=== PATIENT | female | born 1935 | race African-American/Black ===

== ENCOUNTER 2017-05-19 06:42 | Emergency (ER) | payer MEDICARE ==
[~2017-05-19] VITALS: Ht 172.7 cm; Wt 104.3 kg
[2017-05-19 06:52] VITALS: BP 141/77
--- NOTE | 2017-05-19 06:58 | Emergency Room Report ---
History of Present Illness General Chief Complaint: Gastrointestinal Bleed Source: Medical Record Present Illness HPI Patient is a 82-year-old female sent in by skilled nursing after increased rectal bleeding. Patient was noted to have approximately 250ml of a red blood per rectum. The patient is noted a prior history of CVA and was taking aspirin daily. The patient was noted to be initially normotensive. She's noted be hypotensive at the facility. The patient history of diabetes. History is limited by patient's mental status. Allergies: Coded Allergies: No Known Allergies (Unverified , 05/19/17) Patient History Past Medical History: see triage record Reviewed Nursing Documentation: PMH: Agreed, PSxH: Agreed Nursing Documentation-PMH Past Medical History: No History, Except For Hx Cardiac Problems: Yes - arrhythmia Hx Hypertension: Yes Hx Diabetes: Yes Hx Neurological Problems: Yes - hemiplegia and hemiparesis, muscle weakness Review of Systems All Other Systems: limited - by mental status Physical Exam Vital Signs Date Time Temp Pulse Resp B/P (MAP) Pulse Ox O2 Delivery O2 Flow Rate FiO2 05/19/17 06:43 95 26 141/77 Room Air 05/19/17 06:52 99 Sp02 EP Interpretation: reviewed, normal General Appearance: normal inspection, obese, Chronically Ill Head: atraumatic ENT: normal ENT inspection, hearing grossly normal, normal voice Neck: normal inspection, full range of motion, supple, no bony tend Respiratory: normal inspection, lungs clear, normal breath sounds, no respiratory distress, no retraction, no wheezing Cardiovascular #1: regular rate, rhythm, edema Gastrointestinal: normal inspection, normal bowel sounds, non tender, soft, no guarding, no hernia Genitourinary: no CVA tenderness Musculoskeletal: normal inspection, back normal, normal range of motion Neurologic: normal inspection, alert, responsive, speech normal Psychiatric: normal inspection, judgement/insight normal, mood/affect normal Skin: normal inspection, normal color, no rash Medical Decision Making Diagnostic Impression: Primary Impression: Gastrointestinal hemorrhage Additional Impression: CVA, old, hemiparesis ER Course Patient is a 52-year-old female sent in by EMS after increased rectal bleeding. The differential diagnosis included but was not limited to ulcer, diverticulosis, aortic aneurysm, arteriovenous formation, coagulopathy, cancer among others. The patient was noted to be previous on Coumadin for arrhythmia. Patient noted to be coagulopathic the patient recently been at [place]. The patient was noted to be somewhat anemic. She was noted to have some blood to her rectal area. The patient started on IV fluids. She is given IV acid blockers. Initial hemoglobin was somewhat decreased from her baseline from yesterday. The patient was discussed with from [facility] regarding transfer for further workup Labs Test 05/19/17 08:15 05/19/17 08:59 White Blood Count 10.9 K/UL (4.8-10.8) Red Blood Count 4.64 M/UL (4.20-5.40) Hemoglobin 11.4 G/DL (12.0-16.0) Hematocrit 37.1 % (37.0-47.0) Mean Corpuscular Volume 80 FL (80-99) Mean Corpuscular Hemoglobin 24.7 PG (27.0-31.0) Mean Corpuscular Hemoglobin Concent 30.8 G/DL (32.0-36.0) Red Cell Distribution Width 15.3 % (11.6-14.8) Platelet Count 363 K/UL (150-450) Mean Platelet Volume 8.1 FL (6.5-10.1) Neutrophils (%) (Auto) 76.7 % (45.0-75.0) Lymphocytes (%) (Auto) 12.6 % (20.0-45.0) Monocytes (%) (Auto) 8.3 % (1.0-10.0) Eosinophils (%) (Auto) 1.0 % (0.0-3.0) Basophils (%) (Auto) 1.4 % (0.0-2.0) Troponin I < 0.30 ng/mL (<=0.30) Prothrombin Time 20.1 SEC (9.30-11.50) Prothromb Time International Ratio 1.9 (0.9-1.1) Activated Partial Thromboplast Time 41 SEC (23-33) Sodium Level 133 mEQ/L (135-145) Potassium Level 4.3 mEQ/L (3.4-4.9) Chloride Level 94 mEQ/L (98-107) Carbon Dioxide Level 21 mEQ/L (20-30) Anion Gap 18 (5-15) Blood Urea Nitrogen 25 mg/dL (7-23) Creatinine 0.6 mg/dL (0.5-0.9) Estimat Glomerular Filtration Rate mL/min (>60) Glucose Level 252 mg/dL (74-106) Lactic Acid Level 1.60 mmol/L (0.66-2.22) Calcium Level 9.0 mg/dL (8.6-10.2) Total Bilirubin 0.4 mg/dL (0.0-1.2) Aspartate Amino Transf (AST/SGOT) 17 U/L (5-40) Alanine Aminotransferase (ALT/SGPT) 16 U/L (3-33) Alkaline Phosphatase 61 U/L (35-104) Total Creatine Kinase 30 U/L (26-140) Creatine Kinase MB 1.6 ng/mL (< 3.8) Creatine Kinase MB Relative Index 5.3 Total Protein 6.0 g/dL (6.6-8.7) Albumin 2.6 g/dL (3.5-5.2) Globulin 3.4 g/dL Albumin/Globulin Ratio 0.7 (1.0-2.7) EKG Diagnostic Results Rate: tachycardiac Rhythm: NSR - 102 ST Segments: no acute changes ASA given to the pt in ED: No Rhythm Strip Diag. Results EP Interpretation: yes Rhythm: NSR, no PVC's, no ectopy Last Vital Signs Date Time Temp Pulse Resp B/P (MAP) Pulse Ox O2 Delivery O2 Flow Rate FiO2 05/19/17 06:52 98 26 141/77 99 Room Air Status: unchanged [facility] Condition: Serious Yahir Kemp May 19, 2017 06:58
[2017-05-19] MEDS ORDERED: Lidocaine 1% MPF 10mg/ml 5ml ONE (08:41)
[2017-05-19] MEDS ORDERED: Famotidine 20 MG/ 2ML VIAL IVP ONE (08:45)
[2017-05-19 08:49] LABS: BASOPHILS % (AUTO) 1.4 % (0.0-2.0); LYMPHOCYTES % (AUTO) 12.6 % (20.0-45.0); MEAN CORPUSCULAR HEMOGLOBIN 24.7 PG (27.0-31.0); MEAN CORPUSCULAR HGB CONC 30.8 G/DL (32.0-36.0); MEAN CORPUSCULAR VOLUME 80 FL (80-99); MEAN PLATELET VOLUME 8.1 FL (6.5-10.1); MONOCYTES % (AUTO) 8.3 % (1.0-10.0); NEUTROPHILS % (AUTO) 76.7 % (45.0-75.0); PLATELET COUNT 363 K/UL (150-450); RED BLOOD COUNT 4.64 M/UL (4.20-5.40); RED CELL DISTRIBUTION WIDTH 15.3 % (11.6-14.8); WHITE BLOOD COUNT 10.9 K/UL (4.8-10.8)
[2017-05-19] MEDS ORDERED: Lidocaine 1% MPF 10mg/ml 5ml INJ ONE (09:15)
[2017-05-19 09:30] VITALS: BP 117/78
[2017-05-19 09:38] LABS: INR 1.9 (0.9-1.1); PROTHROMBIN TIME 20.1 SEC (9.30-11.50)
[2017-05-19 09:47] LABS: ALANINE AMINOTRANSFERASE 16 U/L (3-33); ALBUMIN/GLOBULIN RATIO 0.7 (1.0-2.7); ASPARTATE AMINO TRANSFERASE 17 U/L (5-40); CARBON DIOXIDE 21 mEQ/L (20-30); CREATININE 0.6 mg/dL (0.5-0.9); HEMOLYSIS 7
[2017-05-19 09:52] LABS: TROPONIN I < 0.30 ng/mL (<=0.30)
[2017-05-19 09:55] LABS: ANION GAP 18 (5-15); CHLORIDE 94 mEQ/L (98-107); POTASSIUM 4.3 mEQ/L (3.4-4.9); SODIUM 133 mEQ/L (135-145)
[2017-05-19 09:59] LABS: CKMB 1.6 ng/mL (< 3.8)
--- NOTE | 2017-05-19 10:10 | Diagnostic Imaging Report ---
Indication: PAIN, status post central line placement Technique: One view of the chest Comparison: 2 hours earlier Findings: There are placement right jugular central venous catheter, tip which projects the level of the high right atrium. Interim placement of a nasogastric tube, tip projecting at the level gastric antrum in good position. Lungs and pleural spaces remain clear. Heart remains borderline enlarged. No pneumothorax Impression: Satisfactory central venous catheter placement. No radiographically evident complication Satisfactory nasogastric intubation
--- NOTE | 2017-05-19 10:20 | Diagnostic Imaging Report ---
Indication: SOB Technique: One view of the chest Comparison: none Findings: Somewhat suboptimal inspiration. Nasogastric tube is in place, tip projecting at the level gastric antrum. The lungs and pleural spaces are clear. The heart is borderline enlarged. Aorta is tortuous. Impression: Satisfactory nasogastric intubation No acute process
[2017-05-19 10:32] LABS: APPEARANCE,URINE CLOUDY; KETONES,URINE NEGATIVE (NEGATIVE); LEUKOCYTE ESTERASE ,URINE 3+ (NEGATIVE); NITRITE,URINE NEGATIVE (NEGATIVE); PH,URINE 6 (4.5-8.0); PROTEIN,URINE NEGATIVE (NEGATIVE); UROBILINOGEN,URINE NORMAL MG/DL (0.0-1.0)
[2017-05-19 10:43] LABS: BACTERIA,URINE MANY /HPF; SQUAMOUS EPITHELIAL CELL,UR OCCASIONAL /LPF (NONE/OCC); WBC,URINE 40-60 /HPF (0 - 2)
[2017-05-19] MEDS ORDERED: cefTRIAXone 1 GM in NS 55 ML IVPB ONE (11:00)
[2017-05-19 11:30] VITALS: BP 115/69
[2017-05-19 12:00] VITALS: BP 115/69
--- NOTE | 2017-05-19 15:45 | Cardiology Report ---
APPROVED REPORT EKG Measurement Heart [id number] Atrial fibrillation with rapid ventricular response Nonspecific ST and T wave abnormality Abnormal ECG
== END 2017-05-19 12:00 | disposition short-term general hospital (02) ==
LOC: EDBD 06:42 → EMR 07:50
DX: K92.2 Gastrointestinal hemorrhage, unspecified (principal); G81.90 Hemiplegia, unspecified affecting unspecified side; I10 Essential (primary) hypertension; E11.9 Type 2 diabetes mellitus without complications; R00.0 Tachycardia, unspecified; R41.82 Altered mental status, unspecified; N39.0 Urinary tract infection, site not specified
CPT/HCPCS: 36415; 36569; 71010; 80053; 81003; 82550; 82553; 83605; 84484; 85025; 85610; 85730; 86850; 86900; 86901; 87040; 87086; 87181; 93005; 96365; 96375; 99285; J0696; S0028

== ENCOUNTER 2017-08-30 23:22 | Emergency (ER) | payer MEDICARE ==
[~2017-08-30] VITALS: Ht 170.2 cm; Wt 99.8 kg
[2017-08-31 00:30] VITALS: BP_SYST 166
[2017-08-31] MEDS ORDERED: Albuterol/Ipratropium 3ml neb HHN ONE (01:00)
[2017-08-31 02:00] VITALS: BP 124/85
[2017-08-31 02:26] LABS: BASOPHILS % (AUTO) 1.3 % (0.0-2.0); LYMPHOCYTES % (AUTO) 17.6 % (20.0-45.0); MEAN CORPUSCULAR HEMOGLOBIN 20.9 PG (27.0-31.0); MEAN CORPUSCULAR HGB CONC 30.5 G/DL (32.0-36.0); MEAN CORPUSCULAR VOLUME 68 FL (80-99); MEAN PLATELET VOLUME 8.5 FL (6.5-10.1); MONOCYTES % (AUTO) 9.4 % (1.0-10.0); NEUTROPHILS % (AUTO) 71.7 % (45.0-75.0); PLATELET COUNT 336 K/UL (150-450); RED BLOOD COUNT 5.46 M/UL (4.20-5.40); RED CELL DISTRIBUTION WIDTH 19.6 % (11.6-14.8); WHITE BLOOD COUNT 5.9 K/UL (4.8-10.8)
[2017-08-31 02:38] LABS: ANION GAP 8 mmol/L (5-15); CALCIUM 9.1 MG/DL (8.5-10.1); CARBON DIOXIDE 26 MMOL/L (21-32); CHLORIDE 99 MMOL/L (98-107); CREATININE 0.6 MG/DL (0.55-1.30); INR 1.7 (0.9-1.1); POTASSIUM 3.9 MMOL/L (3.5-5.1); PROTHROMBIN TIME 17.4 SEC (9.30-11.50); SODIUM 133 MMOL/L (136-145)
--- NOTE | 2017-08-31 02:58 | Emergency Room Report ---
History of Present Illness General Chief Complaint: Dyspnea/Respdistress Source: Family Member, EMS Present Illness HPI The patient is a 82-year-old female who presented after increased difficulty breathing. Patient noted have increased respiratory rate. She had been noted to be previously anticoagulated with Coumadin. She prior history of left-sided weakness. The patient is a care home resident. She prior history of a fibrillation. Allergies: Coded Allergies: No Known Allergies (Unverified , 05/19/17) Patient History Past Medical History: see triage record Reviewed Nursing Documentation: PMH: Agreed, PSxH: Agreed Nursing Documentation-PMH Hx Cardiac Problems: Yes - arrhythmia Hx Hypertension: Yes Hx Diabetes: Yes Hx Neurological Problems: Yes - hemiplegia and hemiparesis, muscle weakness Review of Systems All Other Systems: limited - by mental status Physical Exam Vital Signs Date Time Temp Pulse Resp B/P (MAP) Pulse Ox O2 Delivery O2 Flow Rate FiO2 08/31/17 00:22 98.6 100 28 166/ 99 Room Air Sp02 EP Interpretation: reviewed, normal General Appearance: alert, Chronically Ill Head: atraumatic ENT: moist mucus membranes, other - nonverbal, ng tube in place Neck: supple, no bony tend, limited range of motion Respiratory: normal inspection, no respiratory distress, no retraction, wheezing Cardiovascular #1: no edema, irregularly irregular Gastrointestinal: normal inspection, normal bowel sounds, soft, no guarding, no hernia Genitourinary: no CVA tenderness Musculoskeletal: back normal, normal range of motion, decreased range of motion , other - contracted Neurologic: responsive, motor weakness - moves right upper extremity Psychiatric: judgement/insight normal Skin: normal inspection, normal color, no rash Medical Decision Making Diagnostic Impression: Primary Impression: CHF (congestive heart failure) Additional Impressions: Atrial fibrillation Subtherapeutic anticoagulation ER Course Patient presented for shortness of breath. Differential included but was not limited to anemia, pneumonia, pneumothorax, myocardial infarction, pericardial effusion, congestive heart failure, acidosis. Because of complexity of patient' s case laboratory testing and imaging studies were ordered. The chest x-ray one view interpreted by me showed normal cardiomegaly without evident infiltrate. There is no to be increased vascular congestion. EKG interpreted by me showed atrial fibrillation with a rate of [address] or T wave changes. The patient was given breathing treatment with albuterol. Patient was discussed with [facility]. the patient was given subcutaneous Lovenox for subtherapeutic anticoagulation. The patient will be transferred to [place] currently stable for transfer. Labs Test 08/31/17 02:05 White Blood Count 5.9 K/UL (4.8-10.8) Red Blood Count 5.46 M/UL (4.20-5.40) Hemoglobin 11.4 G/DL (12.0-16.0) Hematocrit 37.3 % (37.0-47.0) Mean Corpuscular Volume 68 FL (80-99) Mean Corpuscular Hemoglobin 20.9 PG (27.0-31.0) Mean Corpuscular Hemoglobin Concent 30.5 G/DL (32.0-36.0) Red Cell Distribution Width 19.6 % (11.6-14.8) Platelet Count 336 K/UL (150-450) Mean Platelet Volume 8.5 FL (6.5-10.1) Neutrophils (%) (Auto) 71.7 % (45.0-75.0) Lymphocytes (%) (Auto) 17.6 % (20.0-45.0) Monocytes (%) (Auto) 9.4 % (1.0-10.0) Eosinophils (%) (Auto) 0.0 % (0.0-3.0) Basophils (%) (Auto) 1.3 % (0.0-2.0) Prothrombin Time 17.4 SEC (9.30-11.50) Prothromb Time International Ratio 1.7 (0.9-1.1) Activated Partial Thromboplast Time 32 SEC (23-33) Sodium Level 133 MMOL/L (136-145) Potassium Level 3.9 MMOL/L (3.5-5.1) Chloride Level 99 MMOL/L (98-107) Carbon Dioxide Level 26 MMOL/L (21-32) Anion Gap 8 mmol/L (5-15) Blood Urea Nitrogen 25 mg/dL (7-18) Creatinine 0.6 MG/DL (0.55-1.30) Estimat Glomerular Filtration Rate mL/min (>60) Glucose Level 155 MG/DL (74-106) Calcium Level 9.1 MG/DL (8.5-10.1) Troponin I 0.068 ng/mL (0.000-0.056) EKG Diagnostic Results Rate: other - afib ST Segments: no acute changes Rhythm Strip Diag. Results EP Interpretation: yes Rhythm: other - afib rate 99 with occasional pvc Last Vital Signs Date Time Temp Pulse Resp B/P (MAP) Pulse Ox O2 Delivery O2 Flow Rate FiO2 08/31/17 00:22 98.6 100 28 166/ 99 Room Air Status: unchanged Disposition: [facility] Condition: Stable Referrals: [facility] (PCP) Yahir Kemp Aug 31, 2017 02:58
[2017-08-31 03:04] LABS: ALANINE AMINOTRANSFERASE 32 U/L (12-78); ALBUMIN/GLOBULIN RATIO 0.5 (1.0-2.7); ASPARTATE AMINO TRANSFERASE 29 U/L (15-37); CKMB 0.6 NG/ML (0.0-3.6); TOTAL PROTEIN 7.1 G/DL (6.4-8.2)
[2017-08-31 03:25] VITALS: BP 133/92
[2017-08-31] MEDS ORDERED: COZAAR25 MG GT (03:38)
[2017-08-31] MEDS ORDERED: COLACE 2-IN-11 EACH PO (03:38)
[2017-08-31] MEDS ORDERED: LIPITOR40 MG GT (03:38)
[2017-08-31] MEDS ORDERED: COLACE100 MG GT (03:38)
[2017-08-31] MEDS ORDERED: SENNA8.6 M2 GT (03:38)
[2017-08-31] MEDS ORDERED: ASPIRIN EC81 MG GT (03:38)
[2017-08-31] MEDS ORDERED: HUMULIN N100 UNIT/1 SUBQ (03:38)
[2017-08-31] MEDS ORDERED: COUMADIN7.5 MG GT (03:38)
[2017-08-31] MEDS ORDERED: POTASSIUM30 MEQ/22. GT (03:38)
[2017-08-31] MEDS ORDERED: MIRALAX17 G2 ORAL (03:38)
[2017-08-31] MEDS ORDERED: METFORMIN HCL850 M1 GT (03:38)
[2017-08-31] MEDS ORDERED: SPIRONOLACTONE25 MG GT (03:38)
[2017-08-31] MEDS ORDERED: COUMADIN5 MG GT (03:38)
[2017-08-31] MEDS ORDERED: HYDROCHLOROTHIA25 MG GT (03:38)
[2017-08-31] MEDS ORDERED: DULCOLAX10 MG RC (03:42)
[2017-08-31] MEDS ORDERED: MINERAL OIL EN133 ML RC (03:42)
[2017-08-31 04:00] LABS: ABG BASE EXCESS 3.6
[2017-08-31 04:01] LABS: ABG ALLEN TEST POSITIVE
[2017-08-31] MEDS ORDERED: Enoxaparin 80mg Inj SUBQ ONE (04:15)
[2017-08-31 05:10] VITALS: BP 133/92
[2017-08-31 05:35] LABS: KETONES,URINE NEGATIVE (NEGATIVE); LEUKOCYTE ESTERASE ,URINE 1+ (NEGATIVE); NITRITE,URINE NEGATIVE (NEGATIVE); PH,URINE 5 (4.5-8.0); PROTEIN,URINE 1+ (NEGATIVE); UROBILINOGEN,URINE NORMAL MG/DL (0.0-1.0)
[2017-08-31 05:55] LABS: APPEARANCE,URINE SLIGHTLY CLOUDY
[2017-08-31 05:56] LABS: BACTERIA,URINE MANY /HPF; RBC,URINE 0 /HPF (0 - 2); SQUAMOUS EPITHELIAL CELL,UR FEW /LPF (NONE/OCC)
--- NOTE | 2017-08-31 17:24 | Diagnostic Imaging Report ---
Indication: Reason For Exam: SOB Technique: One view of the chest Comparison: 05/19/2017 Findings: Interim removal of previously demonstrated central venous catheter. There is a nasogastric tube in place, tip of which is not seen beyond the mid esophagus. Low lung volumes. Borderline cardiomegaly. No definite acute infiltrates or effusion Impression: Malpositioned nasogastric tube No acute cardiopulmonary process Borderline cardiomegaly
== END 2017-08-31 05:04 | disposition short-term general hospital (02) ==
LOC: EDBD 23:22 → EMR 23:36 → EDBEDREQ 08-31 04:25 → EMR 08-31 05:04
DX: I11.0 Hypertensive heart disease with heart failure (principal); I50.9 Heart failure, unspecified; I48.91 Unspecified atrial fibrillation; Z79.01 Long term (current) use of anticoagulants; E11.9 Type 2 diabetes mellitus without complications; G81.94 Hemiplegia, unspecified affecting left nondominant side
CPT/HCPCS: 36415; 36600; 71010; 80053; 81003; 82550; 82553; 82803; 83605; 83880; 84484; 85025; 85610; 85730; 86710; 86850; 86900; 86901; 87040; 87086; 87181; 93005; 94640; 96372; 96374; 99284; J7620